=== PATIENT | male | born 1940 | race Caucasian/White ===

== ENCOUNTER 2023-09-14 10:04 | Inpatient (IN) | payer OTHER, MEDICARE ==
[2023-09-14] MEDS ORDERED: Benzonatate 100 MG CAP PO PRN (13:12)
[2023-09-14] MEDS ORDERED: Benzocaine/Menthol 1 LOZ LOZ PO PRN (13:12)
[2023-09-14] MEDS ORDERED: Sodium Chloride 0.65% Nasal 44 ML BOT EA NARE PRN (13:12)
[2023-09-14] MEDS ORDERED: traMADol HCl 50 MG TAB PO PRN (13:12)
[2023-09-14] MEDS ORDERED: Acetaminophen 650 MG Suppository PR PRN (13:12)
[2023-09-14] MEDS ORDERED: Glucagon 1 MG/ML KIT IM PRN (13:12)
[2023-09-14] MEDS ORDERED: Senokot S 8.6-50 MG TAB PO PRN (13:12)
[2023-09-14] MEDS ORDERED: Dextrose 50% Abboject 50 ML SYRINGE SLOW IVP PRN (13:12)
[2023-09-14] MEDS ORDERED: Calcium Carbonate 500 MG ChewTAB PO PRN (13:12)
[2023-09-14] MEDS ORDERED: Artificial Tear Sol 15 ML BOT EA EYE PRN (13:12)
[2023-09-14] MEDS ORDERED: Bisacodyl 10 MG SUPP PR PRN (13:12)
[2023-09-14] MEDS ORDERED: Guaifenesin DM 100-10/5 ML UDCUP PO PRN (13:12)
[2023-09-14] MEDS ORDERED: Bisacodyl 5 MG TAB PO PRN (13:12)
[2023-09-14] MEDS: cloNIDine 0.1 MG TAB PO PRN (17:18)
[2023-09-14] MEDS ORDERED: Acetaminophen 325 MG TAB PO SCH (18:00)
[2023-09-14] MEDS: traMADol HCl 50 MG TAB PO PRN (19:24)
[2023-09-14] MEDS: Flecainide 50 MG TAB PO SCH (20:28)
[2023-09-14] MEDS: Metoprolol Tartrate 25 MG TAB PO SCH (20:28)
[2023-09-14] MEDS: metFORMIN 500 MG TAB PO SCH (20:28)
[2023-09-14] MEDS: Famotidine 20 MG TAB PO SCH (20:29)
[2023-09-14] MEDS: Apixaban 2.5 MG TAB PO SCH (20:29)
[2023-09-14] MEDS: Loratadine 10 MG TAB PO PRN (20:29)
[2023-09-14] MEDS: HumaLOG 300 UNITS/3 ML VIAL SC PRN ×2 (20:34→21:04)
[2023-09-15 05:32] LABS: #Basophils 0.1 thou/uL (0.0-0.2); #Eosinphils 0.3 thou/uL (0.0-0.7); #Lymphocytes 1.6 thou/uL (1.20-3.40); #Neutrophils 4.5 thou/uL (1.40-6.50); %Eosinophils 4.1 % (0.0-10.0); %Lymphocytes 21.2 % (21.0-51.0); %Monocytes 13.2 % (0.0-10.0); %Neutrophils 60.4 % (42.0-75.0); Hematocrit 23.4 % (42.0-52.0); Hemoglobin 7.7 g/dL (14.0-18.0); Manual Diff?? NO; Mean Corpuscular HGB CONC 32.9 g/dL (32.0-36.0); Mean Corpuscular Hemoglobin 32.2 pg (27.0-31.0); Mean Corpuscular Volume 98.1 fl (78.0-98.0); Mean Platelet Volume 8.1 fL (7.4-10.4); Platelet Count 160 10x3/uL (130-400); RBC Distribution Width 12.2 % (11.5-14.5); Red Blood Cell (RBC) Count 2.39 mill/uL (4.70-6.10); White Blood Cell (WBC) Count 7.5 10x3/uL (4.8-10.8)
[2023-09-15] MEDS: Metoprolol Tartrate 25 MG TAB PO SCH ×2 (07:25→20:29)
[2023-09-15] MEDS: Ferrous Sulfate 325 MG TAB PO SCH (07:25)
[2023-09-15] MEDS: Pioglitazone HCl 15 MG TAB PO SCH (08:00)
[2023-09-15] MEDS: Amlodipine 5 MG TAB PO SCH (08:00)
[2023-09-15] MEDS: metFORMIN 500 MG TAB PO SCH ×2 (08:00→20:30)
[2023-09-15] MEDS: Apixaban 2.5 MG TAB PO SCH ×2 (08:01→20:28)
[2023-09-15] MEDS: Multivitamin W/ Minerals 1 TAB PO SCH (08:01)
[2023-09-15] MEDS: Atorvastatin Calcium 20 MG TAB PO SCH (08:01)
[2023-09-15] MEDS: Famotidine 20 MG TAB PO SCH ×2 (08:01→20:28)
[2023-09-15] MEDS: Flecainide 50 MG TAB PO SCH ×2 (08:02→20:28)
[2023-09-15] MEDS ORDERED: Lisinopril 20 MG TAB PO SCH (09:00)
[2023-09-15] MEDS: traMADol HCl 50 MG TAB PO PRN (10:28)
[2023-09-15 11:40] LABS: Anion Gap 17 mmol/L (10-20); BUN (Urea Nitrogen) 44 mg/dL (8.4-25.7); Calc. Creatinine Clearance 48 mL/min (70-130); Carbon Dioxide 19 mmol/L (23-31); Chloride 106 mmol/L (98-107); Potassium 4.5 mmol/L (3.5-5.1); Sodium 137 mmol/L (136-145)
[2023-09-15 11:41] LABS: Calcium 9.5 mg/dL (7.8-10.44); Estimated GFR 34; Glucose 180 mg/dL (83-110)
[2023-09-15] MEDS: HumaLOG 300 UNITS/3 ML VIAL SC PRN ×2 (12:16→20:32)
[2023-09-15] MEDS: Acetaminophen 325 MG TAB PO PRN (14:09)
[2023-09-15] MEDS: Lisinopril 20 MG TAB PO SCH (20:29)
[2023-09-16] MEDS: cloNIDine 0.1 MG TAB PO PRN (00:18)
[2023-09-16 04:59] LABS: #Basophils 0.1 thou/uL (0.0-0.2); #Eosinphils 0.3 thou/uL (0.0-0.7); #Lymphocytes 1.5 thou/uL (1.20-3.40); #Monocytes 0.9 thou/uL (0.11-0.59); #Neutrophils 4.1 thou/uL (1.40-6.50); %Basophils 0.8 % (0.0-1.0); %Eosinophils 4.3 % (0.0-10.0); %Lymphocytes 21.6 % (21.0-51.0); %Monocytes 13.4 % (0.0-10.0); %Neutrophils 60.1 % (42.0-75.0); Hematocrit 22.9 % (42.0-52.0); Hemoglobin 7.7 g/dL (14.0-18.0); Mean Corpuscular HGB CONC 33.8 g/dL (32.0-36.0); Mean Corpuscular Hemoglobin 32.4 pg (27.0-31.0); Mean Platelet Volume 7.3 fL (7.4-10.4); Platelet Count 191 10x3/uL (130-400); RBC Distribution Width 12.1 % (11.5-14.5); Red Blood Cell (RBC) Count 2.38 mill/uL (4.70-6.10); White Blood Cell (WBC) Count 6.8 10x3/uL (4.8-10.8)
[2023-09-16 05:14] LABS: ALT (SGPT) 40 U/L (8-55); AST (SGOT) 70 U/L (5-34); Albumin 3.2 g/dL (3.4-4.8); Alkaline Phosphatase 67 U/L (40-110); Anion Gap 14 mmol/L (10-20); BUN (Urea Nitrogen) 45 mg/dL (8.4-25.7); Bilirubin, Total 0.5 mg/dL (0.2-1.2); Calc. Creatinine Clearance 51 mL/min (70-130); Calcium 8.9 mg/dL (7.8-10.44); Carbon Dioxide 21 mmol/L (23-31); Chloride 108 mmol/L (98-107); Estimated GFR 38; Globulin 2.6 g/dL (2.4-3.5); Glucose 170 mg/dL (83-110); Potassium 4.7 mmol/L (3.5-5.1); Protein, Total 5.8 g/dL (5.8-8.1); Sodium 138 mmol/L (136-145)
[2023-09-16] MEDS: HumaLOG 300 UNITS/3 ML VIAL SC PRN ×3 (05:33→20:32)
[2023-09-16] MEDS: traMADol HCl 50 MG TAB PO PRN ×2 (08:42→16:03)
[2023-09-16] MEDS: metFORMIN 500 MG TAB PO SCH ×2 (08:45→20:29)
[2023-09-16] MEDS: Atorvastatin Calcium 20 MG TAB PO SCH (08:46)
[2023-09-16] MEDS: Famotidine 20 MG TAB PO SCH ×2 (08:46→20:30)
[2023-09-16] MEDS: Pioglitazone HCl 15 MG TAB PO SCH (08:46)
[2023-09-16] MEDS: Apixaban 2.5 MG TAB PO SCH ×2 (08:46→20:30)
[2023-09-16] MEDS: Amlodipine 5 MG TAB PO SCH (08:47)
[2023-09-16] MEDS: Multivitamin W/ Minerals 1 TAB PO SCH (08:49)
[2023-09-16] MEDS: Ferrous Sulfate 325 MG TAB PO SCH (08:49)
[2023-09-16] MEDS: Lisinopril 20 MG TAB PO SCH ×2 (08:50→20:30)
[2023-09-16] MEDS: Metoprolol Tartrate 25 MG TAB PO SCH ×2 (08:50→20:29)
[2023-09-16] MEDS: Flecainide 50 MG TAB PO SCH ×2 (08:51→20:29)
[2023-09-17] MEDS: cloNIDine 0.1 MG TAB PO PRN ×2 (00:20→22:26)
[2023-09-17] MEDS: HumaLOG 300 UNITS/3 ML VIAL SC PRN ×2 (05:24→16:20)
[2023-09-17 06:22] LABS: #Basophils 0.1 thou/uL (0.0-0.2); #Eosinphils 0.3 thou/uL (0.0-0.7); #Lymphocytes 1.6 thou/uL (1.20-3.40); #Monocytes 0.9 thou/uL (0.11-0.59); %Lymphocytes 23.8 % (21.0-51.0); %Monocytes 12.4 % (0.0-10.0); %Neutrophils 58.9 % (42.0-75.0); Hematocrit 25.3 % (42.0-52.0); Hemoglobin 8.1 g/dL (14.0-18.0); Mean Corpuscular HGB CONC 31.9 g/dL (32.0-36.0); Mean Corpuscular Hemoglobin 32.1 pg (27.0-31.0); Mean Platelet Volume 8.2 fL (7.4-10.4); Platelet Count 241 10x3/uL (130-400); RBC Distribution Width 12.6 % (11.5-14.5); Red Blood Cell (RBC) Count 2.51 mill/uL (4.70-6.10); White Blood Cell (WBC) Count 6.8 10x3/uL (4.8-10.8)
[2023-09-17] MEDS ORDERED: hydrALAZINE 20 MG/ML VIAL SLOW IVP PRN (07:49)
[2023-09-17] MEDS: metFORMIN 500 MG TAB PO SCH ×2 (08:14→20:34)
[2023-09-17] MEDS: Apixaban 2.5 MG TAB PO SCH ×2 (08:14→20:34)
[2023-09-17] MEDS: Flecainide 50 MG TAB PO SCH ×2 (08:14→20:34)
[2023-09-17] MEDS: Ferrous Sulfate 325 MG TAB PO SCH (08:14)
[2023-09-17] MEDS: Famotidine 20 MG TAB PO SCH ×2 (08:14→20:34)
[2023-09-17] MEDS: Multivitamin W/ Minerals 1 TAB PO SCH (08:14)
[2023-09-17] MEDS: Lisinopril 20 MG TAB PO SCH ×2 (08:15→20:36)
[2023-09-17] MEDS: Atorvastatin Calcium 20 MG TAB PO SCH (08:16)
[2023-09-17] MEDS: Metoprolol Tartrate 25 MG TAB PO SCH ×2 (08:16→20:34)
[2023-09-17] MEDS: Loratadine 10 MG TAB PO PRN (08:16)
[2023-09-17] MEDS: Pioglitazone HCl 15 MG TAB PO SCH (08:16)
[2023-09-17] MEDS ORDERED: FLU VACC QS2023(65UP)/MF59C/PF 60 MCG/0.5 ML SYRINGE IM ONE (09:00)
[2023-09-17] MEDS ORDERED: hydrALAZINE 20 MG/ML VIAL IM PRN (19:17)
[2023-09-17] MEDS: Amlodipine 5 MG TAB PO SCH (20:35)
[2023-09-18] MEDS: cloNIDine 0.1 MG TAB PO PRN ×2 (04:58→11:42)
[2023-09-18 05:13] VITALS: BMI 33.4
[2023-09-18] MEDS: HumaLOG 300 UNITS/3 ML VIAL SC PRN ×3 (05:23→16:46)
[2023-09-18 05:39] LABS: Hematocrit 23.7 % (42.0-52.0); Hemoglobin 7.9 g/dL (14.0-18.0); Manual Diff?? NO; Mean Corpuscular HGB CONC 33.4 g/dL (32.0-36.0); Mean Corpuscular Hemoglobin 32.3 pg (27.0-31.0); Mean Corpuscular Volume 96.5 fl (78.0-98.0); Mean Platelet Volume 8.2 fL (7.4-10.4); Platelet Count 114 10x3/uL (130-400); RBC Distribution Width 12.1 % (11.5-14.5); Red Blood Cell (RBC) Count 2.46 mill/uL (4.70-6.10); White Blood Cell (WBC) Count 6.9 10x3/uL (4.8-10.8)
[2023-09-18 05:41] LABS: #Lymphocytes 1.5 thou/uL (1.20-3.40); #Monocytes 0.7 thou/uL (0.11-0.59); #Neutrophils 4.2 thou/uL (1.40-6.50); %Basophils 1.1 % (0.0-1.0); %Eosinophils 3.5 % (0.0-10.0); %Lymphocytes 21.1 % (21.0-51.0); %Monocytes 10.8 % (0.0-10.0); %Neutrophils 60.2 % (42.0-75.0)
[2023-09-18 05:42] LABS: #Basophils 0.1 thou/uL (0.0-0.2); #Eosinphils 0.2 thou/uL (0.0-0.7)
[2023-09-18] MEDS: Multivitamin W/ Minerals 1 TAB PO SCH (10:27)
[2023-09-18] MEDS: Pioglitazone HCl 15 MG TAB PO SCH (10:27)
[2023-09-18] MEDS: Metoprolol Tartrate 25 MG TAB PO SCH ×2 (10:27→20:23)
[2023-09-18] MEDS: Apixaban 2.5 MG TAB PO SCH ×2 (10:27→20:23)
[2023-09-18] MEDS: Hydrochlorothiazide 25 MG TAB PO SCH (10:28)
[2023-09-18] MEDS: Atorvastatin Calcium 20 MG TAB PO SCH (10:28)
[2023-09-18] MEDS: Flecainide 50 MG TAB PO SCH ×2 (10:28→20:23)
[2023-09-18] MEDS: Ferrous Sulfate 325 MG TAB PO SCH (10:28)
[2023-09-18] MEDS: Loratadine 10 MG TAB PO PRN (10:29)
[2023-09-18] MEDS: Famotidine 20 MG TAB PO SCH ×2 (10:29→20:23)
[2023-09-18] MEDS: Lisinopril 20 MG TAB PO SCH ×2 (10:29→20:24)
[2023-09-18] MEDS: metFORMIN 500 MG TAB PO SCH ×2 (10:29→20:23)
[2023-09-18] MEDS: Amlodipine 5 MG TAB PO SCH (20:24)
[2023-09-19] MEDS: HumaLOG 300 UNITS/3 ML VIAL SC PRN ×3 (05:31→16:14)
[2023-09-19] MEDS: Acetaminophen 325 MG TAB PO PRN ×3 (05:44→20:08)
[2023-09-19 06:05] LABS: Anion Gap 14 mmol/L (10-20); BUN (Urea Nitrogen) 41 mg/dL (8.4-25.7); Calc. Creatinine Clearance 48 mL/min (70-130); Calcium 9.2 mg/dL (7.8-10.44); Chloride 109 mmol/L (98-107); Estimated GFR 35; Glucose 152 mg/dL (83-110); Potassium 4.5 mmol/L (3.5-5.1); Sodium 139 mmol/L (136-145)
[2023-09-19 06:09] LABS: %Basophils 1.1 % (0.0-1.0); %Eosinophils 3.5 % (0.0-10.0); %Lymphocytes 27.6 % (21.0-51.0); %Monocytes 13.2 % (0.0-10.0); %Neutrophils 54.7 % (42.0-75.0); Hematocrit 23.8 % (42.0-52.0); Hemoglobin 7.9 g/dL (14.0-18.0); Manual Diff?? NO; Mean Corpuscular HGB CONC 33.3 g/dL (32.0-36.0); Mean Corpuscular Hemoglobin 37.2 pg (27.0-31.0); Mean Corpuscular Volume 96.8 fl (78.0-98.0); Mean Platelet Volume 7.7 fL (7.4-10.4); Platelet Count 277 10x3/uL (130-400); Red Blood Cell (RBC) Count 2.46 mill/uL (4.70-6.10); White Blood Cell (WBC) Count 7.3 10x3/uL (4.8-10.8)
[2023-09-19 06:10] LABS: #Basophils 0.1 thou/uL (0.0-0.2); #Eosinphils 0.3 thou/uL (0.0-0.7)
[2023-09-19 06:11] LABS: Carbon Dioxide 21 mmol/L (23-31)
[2023-09-19] MEDS: Hydrochlorothiazide 25 MG TAB PO SCH (08:06)
[2023-09-19] MEDS: Metoprolol Tartrate 25 MG TAB PO SCH ×2 (08:06→20:07)
[2023-09-19] MEDS: Multivitamin W/ Minerals 1 TAB PO SCH (08:07)
[2023-09-19] MEDS: Flecainide 50 MG TAB PO SCH ×2 (08:07→20:07)
[2023-09-19] MEDS: Pioglitazone HCl 15 MG TAB PO SCH (08:07)
[2023-09-19] MEDS: Atorvastatin Calcium 20 MG TAB PO SCH (08:08)
[2023-09-19] MEDS: Ferrous Sulfate 325 MG TAB PO SCH (08:08)
[2023-09-19] MEDS: metFORMIN 500 MG TAB PO SCH ×2 (08:08→20:06)
[2023-09-19] MEDS: Famotidine 20 MG TAB PO SCH ×2 (08:08→20:07)
[2023-09-19] MEDS: Apixaban 2.5 MG TAB PO SCH ×2 (08:09→20:08)
[2023-09-19] MEDS: Lisinopril 20 MG TAB PO SCH ×2 (08:11→20:06)
[2023-09-19] MEDS: Amlodipine 5 MG TAB PO SCH (20:07)
[2023-09-19] MEDS: cloNIDine 0.1 MG TAB PO PRN (20:08)
[2023-09-20] MEDS: Acetaminophen 325 MG TAB PO PRN (05:53)
[2023-09-20] MEDS: HumaLOG 300 UNITS/3 ML VIAL SC PRN ×2 (05:53→16:48)
[2023-09-20] MEDS: Lisinopril 20 MG TAB PO SCH ×2 (09:16→20:25)
[2023-09-20] MEDS: Pioglitazone HCl 15 MG TAB PO SCH (09:16)
[2023-09-20] MEDS: metFORMIN 500 MG TAB PO SCH ×2 (09:16→20:24)
[2023-09-20] MEDS: Famotidine 20 MG TAB PO SCH ×2 (09:16→20:25)
[2023-09-20] MEDS: Multivitamin W/ Minerals 1 TAB PO SCH (09:16)
[2023-09-20] MEDS: Atorvastatin Calcium 20 MG TAB PO SCH (09:16)
[2023-09-20] MEDS: Flecainide 50 MG TAB PO SCH ×2 (09:17→20:24)
[2023-09-20] MEDS: Metoprolol Tartrate 25 MG TAB PO SCH ×2 (09:17→20:25)
[2023-09-20] MEDS: Ferrous Sulfate 325 MG TAB PO SCH (09:17)
[2023-09-20] MEDS: Apixaban 2.5 MG TAB PO SCH ×2 (09:17→20:24)
[2023-09-20] MEDS: Hydrochlorothiazide 25 MG TAB PO SCH (09:17)
[2023-09-20] MEDS: Acetaminophen 500 MG TAB PO PRN (15:34)
[2023-09-20] MEDS: traMADol HCl 50 MG TAB PO PRN (19:39)
[2023-09-20] MEDS: Amlodipine 5 MG TAB PO SCH (20:25)
[2023-09-21] MEDS: cloNIDine 0.1 MG TAB PO PRN (05:37)
[2023-09-21] MEDS: HumaLOG 300 UNITS/3 ML VIAL SC PRN ×4 (05:40→20:43)
[2023-09-21] MEDS: Acetaminophen 500 MG TAB PO PRN ×2 (05:44→15:57)
[2023-09-21] MEDS: metFORMIN 500 MG TAB PO SCH ×2 (08:33→20:39)
[2023-09-21] MEDS: Flecainide 50 MG TAB PO SCH ×2 (08:34→20:39)
[2023-09-21] MEDS: Apixaban 2.5 MG TAB PO SCH ×2 (08:34→20:42)
[2023-09-21] MEDS: Atorvastatin Calcium 20 MG TAB PO SCH (08:34)
[2023-09-21] MEDS: Ferrous Sulfate 325 MG TAB PO SCH (08:34)
[2023-09-21] MEDS: Lisinopril 20 MG TAB PO SCH ×2 (08:34→20:42)
[2023-09-21] MEDS: Famotidine 20 MG TAB PO SCH ×2 (08:34→20:40)
[2023-09-21] MEDS: Hydrochlorothiazide 25 MG TAB PO SCH (08:35)
[2023-09-21] MEDS: Pioglitazone HCl 15 MG TAB PO SCH (09:52)
[2023-09-21] MEDS: Multivitamin W/ Minerals 1 TAB PO SCH (09:52)
[2023-09-21] MEDS: Metoprolol Tartrate 25 MG TAB PO SCH ×2 (09:52→20:41)
[2023-09-21] MEDS: Loratadine 10 MG TAB PO PRN (10:40)
[2023-09-21] MEDS: Amlodipine 5 MG TAB PO SCH (20:40)
[2023-09-21] MEDS: traMADol HCl 50 MG TAB PO PRN (20:52)
[2023-09-22] MEDS: Acetaminophen 500 MG TAB PO PRN (08:51)
[2023-09-22] MEDS: Atorvastatin Calcium 20 MG TAB PO SCH (08:52)
[2023-09-22] MEDS: metFORMIN 500 MG TAB PO SCH ×2 (08:52→21:01)
[2023-09-22] MEDS: Metoprolol Tartrate 25 MG TAB PO SCH ×2 (08:52→21:02)
[2023-09-22] MEDS: Apixaban 2.5 MG TAB PO SCH ×2 (08:52→21:02)
[2023-09-22] MEDS: Pioglitazone HCl 15 MG TAB PO SCH (08:52)
[2023-09-22] MEDS: Multivitamin W/ Minerals 1 TAB PO SCH (08:52)
[2023-09-22] MEDS: Flecainide 50 MG TAB PO SCH ×2 (08:52→21:02)
[2023-09-22] MEDS: Lisinopril 20 MG TAB PO SCH ×2 (08:52→21:01)
[2023-09-22] MEDS: Famotidine 20 MG TAB PO SCH ×2 (08:53→21:01)
[2023-09-22] MEDS: Hydrochlorothiazide 25 MG TAB PO SCH (08:53)
[2023-09-22] MEDS: Ferrous Sulfate 325 MG TAB PO SCH (08:53)
[2023-09-22] MEDS: HumaLOG 300 UNITS/3 ML VIAL SC PRN ×2 (11:52→21:00)
[2023-09-22] MEDS: Acetaminophen 325 MG TAB PO PRN ×2 (15:51→21:12)
[2023-09-22] MEDS: Amlodipine 5 MG TAB PO SCH (21:02)
[2023-09-22] MEDS: Loratadine 10 MG TAB PO PRN (21:06)
[2023-09-22] MEDS: cloNIDine 0.1 MG TAB PO PRN (21:29)
[2023-09-23 05:52] LABS: #Eosinphils 0.3 thou/uL (0.0-0.7); #Lymphocytes 1.9 thou/uL (1.20-3.40); #Monocytes 0.6 thou/uL (0.11-0.59); #Neutrophils 4.6 thou/uL (1.40-6.50); %Basophils 0.6 % (0.0-1.0); %Eosinophils 3.9 % (0.0-10.0); %Lymphocytes 25.2 % (21.0-51.0); %Monocytes 8.3 % (0.0-10.0); %Neutrophils 62.2 % (42.0-75.0); Hematocrit 24.6 % (42.0-52.0); Mean Corpuscular HGB CONC 32.4 g/dL (32.0-36.0); Mean Corpuscular Hemoglobin 31.3 pg (27.0-31.0); Mean Corpuscular Volume 96.4 fl (78.0-98.0); Mean Platelet Volume 7.6 fL (7.4-10.4); Platelet Count 285 10x3/uL (130-400); RBC Distribution Width 12.4 % (11.5-14.5); Red Blood Cell (RBC) Count 2.55 mill/uL (4.70-6.10); White Blood Cell (WBC) Count 7.4 10x3/uL (4.8-10.8)
[2023-09-23] MEDS: Ferrous Sulfate 325 MG TAB PO SCH (07:52)
[2023-09-23] MEDS: Lisinopril 20 MG TAB PO SCH (07:52)
[2023-09-23] MEDS: Metoprolol Tartrate 25 MG TAB PO SCH (07:53)
[2023-09-23] MEDS: Multivitamin W/ Minerals 1 TAB PO SCH (07:53)
[2023-09-23] MEDS: Apixaban 2.5 MG TAB PO SCH (07:53)
[2023-09-23] MEDS: Flecainide 50 MG TAB PO SCH (07:54)
[2023-09-23] MEDS: Atorvastatin Calcium 20 MG TAB PO SCH (07:55)
[2023-09-23] MEDS: Pioglitazone HCl 15 MG TAB PO SCH (07:55)
[2023-09-23] MEDS: Hydrochlorothiazide 25 MG TAB PO SCH (07:56)
[2023-09-23] MEDS: Famotidine 20 MG TAB PO SCH (07:56)
[2023-09-23] MEDS: metFORMIN 500 MG TAB PO SCH (07:56)
[2023-09-23] MEDS: HumaLOG 300 UNITS/3 ML VIAL SC PRN (11:14)
[2023-09-23 16:09] VITALS: BP 184/71; TEMP 97.8
[2023-09-23] MEDS ORDERED: Spironolactone 25 MG TAB PO SCH (17:00)
== END 2023-09-23 16:20 | disposition home or self-care (01) | DRG 561 ==
LOC: NAV ACUTE 16:23
PROVIDERS: ADMIT Family Medicine; ATTEND Family Medicine
DX: S72.002D Fracture of unspecified part of neck of left femur, subsequent encounter for closed fracture with routine healing (principal); R53.1 Weakness; W01.0XXD Fall on same level from slipping, tripping and stumbling without subsequent striking against object, subsequent encounter; I48.91 Unspecified atrial fibrillation; I12.9 Hypertensive chronic kidney disease with stage 1 through stage 4 chronic kidney disease, or unspecified chronic kidney disease; E11.22 Type 2 diabetes mellitus with diabetic chronic kidney disease; N18.32 Chronic kidney disease, stage 3b; D64.89 Other specified anemias; Z85.46 Personal history of malignant neoplasm of prostate; Z87.891 Personal history of nicotine dependence; Z79.899 Other long term (current) drug therapy; Z79.01 Long term (current) use of anticoagulants; Z79.84 Long term (current) use of oral hypoglycemic drugs
CPT/HCPCS: 36415; 36416; 80048; 80053; 83036; 85025; J1815